=== PATIENT | male | born 1985 | race Caucasian/White ===

== ENCOUNTER 2022-10-01 08:55 | Observation (INO) | payer BC, SELFPAY ==
--- NOTE | ~2022-10-01 | XR_ITS ---
EXAMINATION: XR LUMBOSACRAL SPINE CLINICAL INFORMATION: Low back pain COMPARISON: None available. TECHNIQUE: Three views of the lumbosacral spine. FINDINGS: The vertebral bodies demonstrate normal height. No evidence of acute fracture. Mild endplate spurring at L4-5. Disc spaces relatively maintained.. Surgical clips in the right lower abdomen. SI joints are intact. XR/XR lumbar spine 2-3V IMPRESSION: No evidence of acute osseous abnormality.
[2022-10-01 09:04] VITALS: BP 116/66; BP 119/60; PULSE 60; PULSE 67; RESP 16; TEMP 36.4; O2SAT 97; O2SAT 98; BMI 26.4
--- NOTE | 2022-10-01 09:41 | ED.BACK ---
HPI - Back Pain/Injury General Chief Complaint: Back Pain/Injury Stated Complaint: BACK PAIN,UNABLE TO SIT OR STAND PER EMS Time Seen by Provider: 10/01/22 09:08 Source: patient and EMS Mode of arrival: EMS Limitations: no limitations History of Present Illness HPI Narrative: This is a 37-year-old male history of compressed vertebrae 5 years ago per patient presenting to the emergency department complaints of lower back pain, atraumatic in nature, present for the past 3 days acutely worsening today, patient reports today he woke up with lower back pain, tried walking to the kitchen to get a leave for which she usually takes for his back pain, suddenly got a sharp pain in his back, since then he reports pain has been severe, and he has not been able to walk due to pain. He reports he was diagnosed with a compressed vertebrae about 5 years ago and was seen by chiropractor. He denies blunt trauma, saddle paresthesias, urinary/ bowel incontinence /retention, fevers, chills, numbness, tingling, headache, vision changes, dizziness, overlying skin changes, chest pain and shortness of breath. No history of IV drug abuse or malignancy Related Data Home Medications Medication Instructions Recorded Confirmed sertraline 100 mg tablet 100 mg PO DAILY 10/01/22 10/01/22 Previous Rx's Medication Instructions Recorded cyclobenzaprine 10 mg tablet 10 mg PO BEDTIME PRN muscle spasm 10/01/22 #7 tabs ketorolac 10 mg tablet 10 mg PO TID PRN pain 5 days #15 10/01/22 tabs lidocaine 5 % topical patch 1 patch topical DAILY PRN pain #15 10/01/22 ea Allergies Allergy/AdvReac Type Severity Reaction Status Date / Time Unable to Assess Allergy Unverified 10/01/22 09:39 Review of Systems Review of Systems: Constitutional : No Weight loss, No Fever, No Chills, ENT/Mouth : No Hearing loss, No Ear Pain, No Nasal Congestion, No Sinus Pain, No Hoarseness, No sore throat, No Rhinorrhea, No Swallowing Difficulty Cardiovascular : No Chest Pain, No SOB Respiratory : No Cough, No Dyspnea Gastrointestinal : No Nausea, No Vomiting, No Diarrhea, No abdominal Pain, No Hematochezia, No Melena Genitourinary : No Dysuria, No Urinary Frequency, No Hematuria, No Urinary Incontinence, Musculoskeletal : positive back pain Skin : No Skin Lesions, No rash Neuro : No Weakness, No Numbness, No Paresthesias, no loss of bowel or bladder incontinence, no saddle anesthesia Yes all other systems are reviewed and are negative [facility] Past Medical History Attestation statement: The following information was validated with the patient. Source: old records reviewed and nursing notes reviewed Social History Social History Smoked in Last 30 Days: No Use of substances other than those prescribed or required for medical reasons: Yes Substance Use Type: Marijuana Advance Directives: No Advance Directives Information Provided: No Physical Exam Vital Signs: Vital Signs: Last Vital Signs Temp 97.5 F 10/01/22 09:04 Pulse 67 10/01/22 09:04 Resp 16 10/01/22 14:19 BP 119/60 10/01/22 09:04 Pulse Ox 97 10/01/22 09:04 O2 Del Method Room Air 10/01/22 09:04 BMI result Body Mass Index 26.4 vss Appearance: Alert.? Oriented X3.? No acute distress.? Head: Normocephalic, atraumatic, no step-offs or deformities Eyes: Pupils equal, round and reactive to light.? Neck: Normal inspection.? Neck supple.? CVS: Normal heart rate and rhythm.? Pulses normal.? Respiratory: No respiratory distress.? Breath sounds normal.? Abdomen: Soft and nontender.? Skin: Skin warm and dry.? Normal skin color.? Normal skin turgor.? Extremities: No lower extremity edema.? No calf ttp. 5/5 strength to bilateral upper and lower extremities Back: No midline tenderness, no C-spine tenderness, full range of motion, no CVA tenderness bilaterally. Midline tenderness overlying L3-L5, positive straight leg raise bilaterally. No saddle paresthesias. Normal reflexes 2+ to bilateral patellar regions. Also lumbar paraspinous tenderness to bilateral lower back region around L3 through L5. Neuro: Oriented X 3.? No motor deficit.? No sensory deficit. CN 2-12 intact . Unable to ambulate secondary to pain. No saddle paresthesias. Normal sensation distally. Course Reevaluation(s) Reevaluation #1: x-ray of lumbar spine with no evidence of osseous abnormality. Patient feeling better However still states he does not feel like he is able to walk. Time: 12:06 Reevaluation #2: Patient is still rating his pain 7/10 in reports inability to ambulate. We have gone and there multiple times, re-evaluated even after giving more pain medicine however pain has not improved. He reports worsening pain. At this time basic labs will be obtained, pain medicine will be given. Discussed this case with my supervising physician who recommends hospital admission. Time: 14:06 Reevaluation #3: CBC within normal limits. Chemistry unremarkable. CRP normal. ESR pending. Patient responding well to Dilaudid. Hospitalist to admit this patient. Time: 15:02 Medications Administered Discontinued Medications Generic Name Dose Route Start Last Admin Trade Name Dennisq PRN Reason Stop Dose Admin Cyclobenzaprine HCl 10 mg 10/01/22 09:39 10/01/22 10:44 Cyclobenzaprine Hcl 10 Mg Tablet PO 10/01/22 09:40 10 mg ONCE ONE Administration Hydromorphone HCl 1 mg 10/01/22 12:08 10/01/22 12:22 Hydromorphone Hcl 2 Mg Tablet PO 10/01/22 12:09 1 mg ONCE ONE Administration Hydromorphone HCl 1 mg 10/01/22 13:59 10/01/22 14:19 Hydromorphone Hcl 1 Mg/Ml Syringe IVPUSH 10/01/22 14:00 1 mg ONCE ONE Administration Protocol Ketorolac Tromethamine 30 mg 10/01/22 09:39 10/01/22 10:45 Ketorolac Tromethamine 15 Mg/Ml Vial IM 10/01/22 09:40 30 mg ONCE ONE Administration Lidocaine 1 patch 10/01/22 09:39 10/01/22 10:46 Lidocaine 4 % Patch Adh..Patch TRANSDERMA 10/01/22 09:40 1 patch ONCE ONE Administration Protocol Morphine Sulfate 15 mg 10/01/22 09:39 10/01/22 10:45 Morphine Sulfate Immed Release 15 Mg Tablet PO 10/01/22 09:40 15 mg ONCE ONE Administration Medical Decision Making Medical Decision Making MDM Narrative: 37-year-old male presents with 3 days of lower back pain, worsening today. Physical exam significant for No midline tenderness, no C-spine tenderness, full range of motion, no CVA tenderness bilaterally. Midline tenderness overlying L3-L5, positive straight leg raise bilaterally. No saddle paresthesias. Normal reflexes 2+ to bilateral patellar regions. Also lumbar paraspinous tenderness to bilateral lower back region around L3 through L5. concerns for lumbar radiculopathy versus herniated disc. Unlikely cauda equina, cord compression, epidural abscess. Plan- x-ray, medication. Differential Diagnosis Differential Diagnoses: The differential diagnosis associated with the presentation includes concerns for lumbar radiculopathy versus herniated disc. Unlikely cauda equina, cord compression, epidural abscess. Admission/Observation Consideration of admission/observation: Escalation of care including admission/observation considered Unlikely Consult Healthcare Provider Management of the patient was discussed with: Hospitalist (Dr. Stephen ) Lab Data MDM Lab Attestation statement: I reviewed the patient's lab results. 10/01/22 14:10 10/01/22 14:10 Labs: Lab Results 10/01/22 10/01/22 Range/Units 14:10 14:10 WBC 7.2 (4.8-10.8) X10*3/uL RBC 5.24 (4.60-5.80) X10*6/uL Hgb 15.7 (14.0-18.0) g/dl Hct 46.3 (42.0-52.0) % MCV 88.4 (80.0-98.0) fL MCH 30.0 (27.0-33.0) pg MCHC 33.9 (31.0-36.0) g/dl RDW 12.4 (11.0-16.0) % Plt Count 243 (160-400) X10*3/uL MPV 10.4 (9.4-12.4) fL Immature Gran % (Auto) 0.1 (0.0-0.4) % Neut % (Auto) 75.2 H (45-73) % Lymph % (Auto) 14.0 L (20-40) % [place] % (Auto) 9.3 (2-11) % Eos % (Auto) 1.1 (0-4) % Baso % (Auto) 0.3 (0-2) % Lymph # (Auto) 1.0 L (1.2-4.9) X10*3/uL [place] # (Auto) 0.7 (0.1-1.2) X10*3/uL Eos # (Auto) 0.1 (0.0-0.4) X10*3/uL Baso # (Auto) 0.0 (0.0-0.2) X10*3/uL Abs Immat Gran (auto) 0.01 (0.00-0.03) X10*3/uL Absolute Neuts (auto) 5.4 (2.0-8.3) x10*3/uL Absolute Nucleated RBC 0.000 (0.0-0.012) X10*3/uL Nucleated RBC % (auto) 0.0 (0.0-0.2) /100WBC Sodium 142 (135-145) mmol/L Potassium 4.1 (3.3-5.1) mmol/L Chloride 103 (96-108) mmol/L Carbon Dioxide 27 (22-29) mmol/L Anion Gap 16 (12-20) BUN 11 (9-16) mg/dL Creatinine 0.78 (0.5-1.4) mg/dL Estim Creat Clear Calc 139.5 Estimated GFR > 60 Random Glucose 91 (60-115) mg/dL Calcium 10.0 (8.4-10.2) mg/dL Total Bilirubin 1.2 H (0.0-1.0) mg/dL AST 18 (5-37) U/L ALT 13 (0-40) U/L Alkaline Phosphatase 74 (39-117) U/L C-Reactive Protein < 0.04 (< or = 0.50) mg/dL Total Protein 7.3 (6.5-8.0) g/dL Albumin 4.7 (3.5-5.0) g/dL Independent Interpretation I performed an independent interpretation of an: Plain X-Ray ( XR/XR lumbar spine 2-3V IMPRESSION: No evidence of acute osseous abnormality.) Radiology Impression Discussion of test interpretation with radiology: I have reviewed the radiologist's reading. Tests considered The following testing was considered but not selected: On exam there are no red flag symptoms, no focal neuro deficits, no indication for emergent MRI or CT of lumbar spine. Prescription Management I considered prescription management with: Pain Medication Core Measures AMI core measures followed: Yes Measure exclusions: not indicated Critical Care Time Critical Care Time Critical Care Time: No Discharge Plan Discharge Clinical Impression: Lumbar radiculopathy Patient Disposition: Admitted As Inpatient Instructions: Lumbar Radiculopathy (ED), Lower Back Exercises (ED) Additional Instructions: Take your medications as prescribed. If you were prescribed antibiotics today, it is important that you take your medication to their entirety, do not skip any doses, do not finish them early. Follow-up with your primary care provider this week. Return to the emergency department with new or worsening symptoms. Such as fevers, chills, chest pain, shortness of breath, nausea, vomiting, dizziness, headache, vision changes, lethargy In case of emergency call 911 Prescriptions: New cyclobenzaprine 10 mg tablet 10 mg PO BEDTIME PRN (Reason: muscle spasm) Qty: 7 0RF ketorolac 10 mg tablet 10 mg PO TID PRN (Reason: pain) 5 Days Qty: 15 0RF lidocaine 5 % adhesive patch,medicated 1 patch topical DAILY PRN (Reason: pain) Qty: 15 0RF Rx Instructions: leave on most painful area for up to 12 hrs No Action sertraline 100 mg tablet 100 mg PO DAILY Referrals: [facility] [Provider Group] - 2 days Stand Alone Forms: Work/School Release
[2022-10-01] MEDS: Cyclobenzaprine HCl 10 MG TABLET PO ×2 (10:44→20:51)
[2022-10-01] MEDS: Morphine Sulfate Immed Release 15 MG TABLET PO (10:45)
[2022-10-01] MEDS: Ketorolac Tromethamine 15 MG/ML VIAL 30 MG IM (10:45)
[2022-10-01] MEDS: Lidocaine 4 % Patch ADH..PATCH 1 PATCH TRANSDERMA ×2 (10:46→16:10)
[2022-10-01] MEDS: HYDROmorphone HCl 2 MG TABLET 1 MG PO (12:22)
[2022-10-01 14:16] LABS: MANUAL DIFF FLAG NO
[2022-10-01 14:17] LABS: Basophils Percent Auto 0.3 % (0-2); Eosinophils Absolute Auto 0.1 X10*3/uL (0.0-0.4); Eosinophils Percent Auto 1.1 % (0-4); Hematocrit 46.3 % (42.0-52.0); Hemoglobin 15.7 g/dl (14.0-18.0); Imm Gran Abs Auto 0.01 X10*3/uL (0.00-0.03); Imm Gran Pct Auto 0.1 % (0.0-0.4); Mean Corpuscular HGB Conc 33.9 g/dl (31.0-36.0); Mean Corpuscular Volume 88.4 fL (80.0-98.0); Mean Platelet Volume 10.4 fL (9.4-12.4); Monocytes Absolute Auto 0.7 X10*3/uL (0.1-1.2); Monocytes Percent Auto 9.3 % (2-11); Neutrophils Absolute Auto 5.4 x10*3/uL (2.0-8.3); Neutrophils Percent Auto 75.2 % (45-73); Platelet Count 243 X10*3/uL (160-400); Red Blood Count 5.24 X10*6/uL (4.60-5.80); Red Cell Distribution Width 12.4 % (11.0-16.0); White Blood Count 7.2 X10*3/uL (4.8-10.8)
[2022-10-01 14:19] VITALS: RESP 16
[2022-10-01] MEDS: HYDROmorphone HCl 1 MG/ML SYRINGE IVPUSH (14:19)
[2022-10-01 14:49] LABS: Alanine Aminotransferase 13 U/L (0-40); Albumin Level 4.7 g/dL (3.5-5.0); Alkaline Phosphatase 74 U/L (39-117); Anion Gap 16 (12-20); Aspartate Amino Transferase 18 U/L (5-37); Bilirubin Total 1.2 mg/dL (0.0-1.0); Blood Urea Nitrogen 11 mg/dL (9-16); C Reactive Protein < 0.04 mg/dL (< or = 0.50); Carbon Dioxide 27 mmol/L (22-29); Chloride 103 mmol/L (96-108); Creatinine Clr Calc Pharmacy 139.5; Estimated Glomerular Filt Rate > 60; Glucose Random 91 mg/dL (60-115); Potassium 4.1 mmol/L (3.3-5.1); Sodium 142 mmol/L (135-145); Total Protein 7.3 g/dL (6.5-8.0)
[2022-10-01 15:05] VITALS: BP 105/60; PULSE 55; RESP 12; TEMP 36.4; O2SAT 96
[2022-10-01 15:06] LABS: Erythrocyte Sedimentation Rate 6 MM/HR (0-15)
--- NOTE | 2022-10-01 15:11 | PM.IMHP ---
History of Present Illness Date of Service: 10/01/22 Attending physician on admission: Dexter Stephen Chief Complaint: backpain 37-year-old male history of back pain 5 years ago per patient presenting to the emergency department complaints of lower back pain-patient says that pain started after doing more than usual exercises on treadmill-started 2 days back. Pain is more in the center of the lower back lumbar area and also in the paraspinal area, radiating to the legs. Pain intensity is 9/10. He says that lying down and flexing the legs makes pain little tolerable but otherwise standing up or sitting make it worse. He says that per pain is getting progressively worse from last 2 days and is becoming difficult to ambulate.He said that he had similar pain 5 years ago that time he went to chiropractor- he was told something compressed in the back that time about 5 years ago and was seen by chiropractor-which seems to be improved with chiropractic help. patient denies blunt trauma, saddle paresthesias, urinary/ bowel incontinence /retention, fevers, chills, numbness, tingling, headache, vision changes, dizziness, overlying skin changes, chest pain and shortness of breath.? No history of IV drug abuse or malignancy Lab imaging reviewed: CBC seems fine-WBC count 7.2, ESR 6 BMP seems fine,boderline total bilirubin 1.2. L spine xray : The vertebral bodies demonstrate normal height. No evidence of acute fracture. Mild endplate spurring at L4-5. Disc spaces relatively maintained.. Surgical clips in the right lower abdomen. SI joints are intact. Review of Systems Review of Systems: As above. REPLACED BY [facility] Pertinent family history: grandfather -has dm. Social History Smoked in Last 30 Days: No Use of substances other than those prescribed or required for medical reasons: Yes Substance Use Type: Marijuana Advance Directives: No Advance Directives Information Provided: No Meds Allergies Allergy/AdvReac Type Severity Reaction Status Date / Time Unable to Assess Allergy Unverified 10/01/22 09:39 Active Medications: Current Medications Acetaminophen (Acetaminophen 325 Mg Tablet) 975 mg PO Q8H ELAINE Cyclobenzaprine HCl (Cyclobenzaprine Hcl 10 Mg Tablet) 10 mg PO BID ELAINE Enoxaparin Sodium (Enoxaparin Sodium 40 Mg/0.4 Ml Syringe) 40 mg SUBCUT DAILY [facility] Hydromorphone HCl (Hydromorphone Hcl 1 Mg/Ml Syringe) 1 mg IVPUSH Q4H PRN; Protocol PRN Reason: Pain, Mild (Pain Scale 1-3) Ibuprofen (Ibuprofen 400 Mg Tablet) 400 mg PO Q6H [facility] Omeprazole (Omeprazole 20 Mg Capsule.) 20 mg PO BID@0630,1630 [facility] Pharmacy Consult (Consult Rx Perform Med Rec) 1 each MISCELLANE ONCE PRN PRN Reason: Consult order Sertraline HCl (Sertraline Hcl 100 Mg Tablet) 100 mg PO DAILY [facility] Sodium Chloride (0.9 % Sodium Chloride Flush 3 Ml Syringe) 3 ml IVFLUSH QSHIFT [facility] Home Medications Medication Instructions Recorded Confirmed Last Taken Type sertraline 100 mg tablet 100 mg PO DAILY 10/01/22 10/01/22 Unknown History Physical Exam Vital Signs and Narrative: Vital Signs: Last Vital Signs Temp 97.5 F 10/01/22 15:05 Pulse 55 10/01/22 15:05 Resp 12 10/01/22 15:05 BP 105/60 10/01/22 15:05 Pulse Ox 96 10/01/22 15:05 O2 Del Method Room Air 10/01/22 15:05 BMI result Body Mass Index 26.4 Appearance: Alert.? Oriented X3.? not in distress.? Eyes: Pupils equal, round and reactive to light.? Sclera nonicteric.? ENT: Pharynx normal.? Moist mucous membranes. cvs: rrr, [id number] . res: clear to auscultation ,no rhonchii or wheezing abd: no rebound or guarding ,nt, bs present. ext pulses present , no cyanosis L spine -paraspinal muscle pain ,also has l-spine area tenderness. moves allext ,able to flex knees ,straight leg raising text positive left side more prnounced. no bowel or bladder dysfunction able to sit with pain ,rom limited due to pain no numbness or weakness dtr seems fine neuro: axo3 , nonfocal. Results Labs 10/01/22 14:10 10/01/22 14:10 Labs: Laboratory Results - last 24 hr 10/01/22 10/01/22 10/01/22 14:10 14:10 14:10 MCV 88.4 MCH 30.0 MCHC 33.9 RDW 12.4 Plt Count 243 MPV 10.4 Immature Gran % (Auto) 0.1 Neut % (Auto) 75.2 H Lymph % (Auto) 14.0 L [place] % (Auto) 9.3 Eos % (Auto) 1.1 Baso % (Auto) 0.3 Lymph # (Auto) 1.0 L [place] # (Auto) 0.7 Eos # (Auto) 0.1 Baso # (Auto) 0.0 Abs Immat Gran (auto) 0.01 Absolute Neuts (auto) 5.4 Absolute Nucleated RBC 0.000 Nucleated RBC % (auto) 0.0 ESR 6 Anion Gap 16 Estim Creat Clear Calc 139.5 Estimated GFR > 60 Random Glucose 91 Calcium 10.0 Total Bilirubin 1.2 H AST 18 ALT 13 Alkaline Phosphatase 74 C-Reactive Protein < 0.04 Total Protein 7.3 Albumin 4.7 Imaging Radiologist's Impressions: Impressions Lumbar Spine X-Ray 10/01/22 10:00 IMPRESSION: No evidence of acute osseous abnormality. Assessment and Plan (1) Spondyloarthropathy of lumbar spine: Status: Acute (2) Back pain: Status: Acute Plan 37-year-old male with past medical history of back pain in the past, came with back pain started 2-3 days ago with increased exercising. 1. Back pain:etiology unclear ? Lumbar spondyloisarthopathy recentlystarted doing more excercise than usual cbc and esr normal Lspine xary-Mild endplate spurring at L4-5. Disc spaces relatively maintained. ed given dilaudid,flexril -but did not get better Continue Dilaudid, NSAIDs, Flexeril, Tylenol , in lidocaine patch. Neuro evaluation,pt 2. dvt prophylax: s/c lovenox. Patient will benefit from observation stay since patient is unable to ambulate-due to range of motion limited due to back pain and did not respond to IV pain medications in ED-need IV pain medications, neurology evaluation concerning back pain not improving. Time Spent With Patient Time: Total time managing care of this patient today ____ minutes. Quality Stroke Does the patient have a stroke diagnosis?: No VTE Prior VTE?: No VTE Risk Level:: Medical - moderate - high VTE Device Contraindication: N/A - Device Ordered VTE Drug Contraindication: N/A - Med Ordered
[2022-10-01] MEDS: Ibuprofen 400 MG TABLET PO ×2 (16:09→20:52)
[2022-10-01] MEDS: Acetaminophen 325 MG TABLET 975 MG PO (16:09)
[2022-10-01] MEDS: Omeprazole 20 MG CAPSULE.DR PO (16:09)
[2022-10-01] MEDS: 0.9 % Sodium Chloride Flush 3 ML SYRINGE IVFLUSH ×2 (17:06→20:52)
[2022-10-01 18:00] VITALS: BP 118/65; PULSE 60; RESP 18; TEMP 36.6; O2SAT 95; BMI 26.2
[2022-10-01 23:34] VITALS: BP 101/55; PULSE 50; RESP 16; TEMP 36; O2SAT 98
[2022-10-02 04:00] VITALS: BP 94/59; PULSE 48; RESP 16; TEMP 36.4; O2SAT 96
[2022-10-02] MEDS: Ibuprofen 400 MG TABLET PO ×2 (04:31→10:55)
[2022-10-02] MEDS: Omeprazole 20 MG CAPSULE.DR PO (05:32)
[2022-10-02 07:32] VITALS: BP 108/68; RESP 18; TEMP 36.6; O2SAT 98
[2022-10-02 07:49] VITALS: BP 108/68; O2SAT 98
[2022-10-02] MEDS: Sertraline HCL 100 MG TABLET PO (07:49)
[2022-10-02] MEDS: Acetaminophen 325 MG TABLET 975 MG PO (07:49)
[2022-10-02] MEDS: Cyclobenzaprine HCl 10 MG TABLET PO (07:50)
[2022-10-02] MEDS: Enoxaparin Sodium 40 MG/0.4 ML SYRINGE SUBCUT (07:50)
[2022-10-02 07:52] VITALS: PULSE 51
[2022-10-02] MEDS: 0.9 % Sodium Chloride Flush 3 ML SYRINGE IVFLUSH (07:52)
--- NOTE | 2022-10-02 08:31 | PM.DS ---
DS: Providers Provider Date of Service: 10/02/22 Date of admission: 10/01/22 14:56 Primary care physician: Unknown Physician Consults: 10/01/22 15:04 Consult to Neurology Routine Consulting Provider: [facility] Reason for consultation: ?acute lumbar spondyloarthopathy vs radiculopathy DS: Diagnosis Discharge Diagnosis (1) Spondyloarthropathy of lumbar spine: Status: Acute (2) Back pain: Status: Acute DS: Summary Hospital Course Hospital Course: Chief Complaint: backpain 37-year-old male history of back pain 5 years ago per patient presenting to the emergency department complaints of lower back pain-patient says that pain started after doing more than usual exercises on treadmill-started 2 days back.? Pain is more in the center of the lower back lumbar area and also in the paraspinal area, radiating to the legs.? Pain intensity is 9/10.? He says that lying down and flexing the legs makes pain little tolerable but otherwise standing up or sitting make it worse.? He says that per pain is getting progressively worse from last 2 days and is becoming difficult to ambulate.He said that he had similar pain 5 years ago that time he went to chiropractor-? he was told something compressed in the back that time about 5 years ago and was seen by chiropractor-which seems to be improved with chiropractic help. patient? denies blunt trauma, saddle paresthesias, urinary/ bowel incontinence /retention, fevers, chills, numbness, tingling, headache, vision changes, dizziness, overlying skin changes, chest pain and shortness of breath.? No history of IV drug abuse or malignancy Lab imaging reviewed: CBC seems fine-WBC count 7.2, ESR 6 BMP seems fine,boderline? total bilirubin 1.2. L spine xray : The vertebral bodies demonstrate normal height. No evidence of acute fracture. Mild endplate spurring at L4-5. Disc spaces relatively maintained.. Surgical clips in the right lower abdomen. SI joints are intact. Hospital course: He presented with back pain as described above with no neurological complication and deeme to be related to lumb spondilotlisthesis, intial plan was to be discharge home, however he was having excruciating pain and so was observe in the hospital overight for pain control with IV dilauid, oral motrin and muscle relaxer. This morning he is doing much better, he got up and walked (he could not sit up yesterday). He will be discharge on conservative managment with Ketorolac, Flexeril and advise to take it easy avoid heavy lifting or strenous activity Time Spent with Patient Time attestation: Total time managing care of this patient today ____ minutes. Discharge coordination time: Greater than 30 minutes Quality: Safe Use of Opioids Does Pt have an Active Cancer Diagnosis on the Problem List?: No Quality: Stroke Does the patient have a stroke diagnosis?: No Physical Exam Vital Signs: Vital Signs: Last Vital Signs Temp 97.9 F 10/02/22 07:32 Pulse 51 10/02/22 07:52 Resp 18 10/02/22 07:32 BP 108/68 10/02/22 07:49 Pulse Ox 98 10/02/22 07:49 O2 Del Method Room Air 10/02/22 07:32 BMI result Body Mass Index 26.2 DS: Data Data Completed and Pending Labs on day of discharge: Laboratory Results - last 24 hr 10/01/22 10/01/22 10/01/22 14:10 14:10 14:10 WBC 7.2 RBC 5.24 Hgb 15.7 Hct 46.3 MCV 88.4 MCH 30.0 MCHC 33.9 RDW 12.4 Plt Count 243 MPV 10.4 Immature Gran % (Auto) 0.1 Neut % (Auto) 75.2 H Lymph % (Auto) 14.0 L [place] % (Auto) 9.3 Eos % (Auto) 1.1 Baso % (Auto) 0.3 Lymph # (Auto) 1.0 L [place] # (Auto) 0.7 Eos # (Auto) 0.1 Baso # (Auto) 0.0 Abs Immat Gran (auto) 0.01 Absolute Neuts (auto) 5.4 Absolute Nucleated RBC 0.000 Nucleated RBC % (auto) 0.0 ESR 6 Sodium 142 Potassium 4.1 Chloride 103 Carbon Dioxide 27 Anion Gap 16 BUN 11 Creatinine 0.78 Estim Creat Clear Calc 139.5 Estimated GFR > 60 Random Glucose 91 Calcium 10.0 Total Bilirubin 1.2 H AST 18 ALT 13 Alkaline Phosphatase 74 C-Reactive Protein < 0.04 Total Protein 7.3 Albumin 4.7 Discharge Plan Discharge Anticipated Discharge Date/Time: 10/02/22 08:28 Patient Disposition: Home, Self-Care Discharge Diagnosis: Back pain Referrals: [facility] [Provider Group] - 2 days Physician,Unknown J [Primary Care Provider] - 1 Week Discharge Medications: New cyclobenzaprine 10 mg tablet 10 mg PO BEDTIME PRN (Reason: muscle spasm) Qty: 7 0RF ketorolac 10 mg tablet 10 mg PO TID PRN (Reason: pain) 5 Days Qty: 15 0RF lidocaine 5 % adhesive patch,medicated 1 patch topical DAILY PRN (Reason: pain) Qty: 15 0RF Rx Instructions: leave on most painful area for up to 12 hrs Continued sertraline 100 mg tablet 100 mg PO DAILY Discharge Orders: Discharge Order (Routine); Ordered 10/02/22 Ordered By: Delgado Seaman Diet: Advance to usual diet Activity on Discharge: As tolerated Stand Alone Forms: Patient Portal Discharge page, Work/School Release Activity Restrictions/Additional Instructions: Take your medications as prescribed. If you were prescribed antibiotics today, it is important that you take your medication to their entirety, do not skip any doses, do not finish them early. Follow-up with your primary care provider this week. Return to the emergency department with new or worsening symptoms. Such as fevers, chills, chest pain, shortness of breath, nausea, vomiting, dizziness, headache, vision changes, lethargy In case of emergency call 911 Care Plan Goals: recover from back pain Health Concerns: back pain Plan of Treatment: take pain medication and muscle relaxer as recommended, avoid strenous activity, avoid heavy lifting, follow up with your Doctor in a week Assessment: as above Patient Instructions: Lumbar Radiculopathy (ED), Lower Back Exercises (ED)
--- NOTE | 2022-10-02 09:10 | MHC.CM.PN ---
PATIENT IS FULLY INDEPENDENT NO DME OR VNA SERVICES PCP IS AT [facility] IN [facility]. HIS PROVIDER IS NEW AND HE IS UNABLE TO RECALL THE NAME. UPDATE MADE TO CM OFFICE THROUGH [employer]. PLAN IS HOME TODAY - SELF CARE HIS FATHER, JULIO ([phone]) WILL PROVIDE TRANSPORT [place]TER 10/02 IN CHART CALL TO [facility] @ [phone]. PATIENT IS ACTIVE WITH SUHAS LYNCH.
== END 2022-10-02 12:17 | disposition home or self-care (01) ==
LOC: HO.ED 15:03 → HO.EDOVER 15:07 → HO.S3 17:07
PROVIDERS: Physician Assistant; Admitting Provider Internal Medicine; Emergency Provider Student in an Organized Health Care Education/Training Program; PCP Nurse Practitioner Family; Visit Provider Internal Medicine
DX: M54.50 Low back pain, unspecified (principal); M47.26 Other spondylosis with radiculopathy, lumbar region
CPT/HCPCS: 36415; 72100; 80053; 85025; 85652; 86140; 96372; 96374; 97161; 99221; 99285; J1170; J1650; J1885